=== PATIENT | male | born 1960 | race African-American/Black ===

== ENCOUNTER 2017-12-27 15:49 | Inpatient (IN) | payer OTHER ==
[~2017-12-27] VITALS: Ht 175.3 cm; Wt 60.4 kg
[2017-12-27 17:25] LABS: BASOPHIL % 0.2 % (0-2)
[2017-12-27 17:29] LABS: RED CELL DISTRIBUTION WIDTH 17.6 % (11.5-14.5)
[2017-12-27 17:30] LABS: PLATELET COUNT 46 x10^3mcL (130-400)
[2017-12-27 17:44] LABS: ALKALINE PHOSPHATASE 98 U/L (46-116); ALT/SGPT 36 U/L (16-63); AST/SGOT 87 U/L (15-37); BILIRUBIN TOTAL 3.8 mg/dL (0.20-1.00); CALCIUM 10.1 mg/dL (8.5-10.1); CARBON DIOXIDE 23.1 mmol/L (21-32); CHLORIDE SERUM 96 mmol/L (98-107); CREATININE SERUM 0.8 mg/dL (0.7-1.3); GFR1 > 60 mL/min; GLUCOSE SERUM 86 mg/dL (74-106); LIPASE 445 IU/L (73-393); SODIUM SERUM 131 mmol/L (136-145)
[2017-12-27 17:48] LABS: ALBUMIN 2.6 g/dL (3.4-5.0); POTASSIUM SERUM 2.8 mmol/L (3.5-5.1); TOTAL PROTEIN, SERUM 8.8 g/dL (6.4-8.2)
[2017-12-27 19:46] LABS: microscopic required? NO
[2017-12-27 19:59] LABS: UA SPECIFIC GRAVITY <=1.005 (1.005-1.035); urine erythrocyte NEGATIVE (NEGATIVE)
[2017-12-27 20:07] LABS: AMPHETAMINE QUAL UR NONE DETECTED (See below)
[2017-12-27 20:32] VITALS: BP 133/94
[2017-12-27 21:08] LABS: RED BLOOD CELLS 3.36 M/mm3 (4.52-5.90)
[2017-12-27 21:10] LABS: CHOLESTEROL/HDL RATIO 4.3; MAGNESIUM 1.4 mg/dL (1.8-2.4); PHOSPHOROUS 2.2 mg/dL (2.5-4.9)
[2017-12-27 21:17] LABS: TOTAL IRON BINDING CAPACITY 365 ug/dL (250-450)
[2017-12-27 21:19] LABS: IRON 31 ug/dL (65-170)
[2017-12-27 21:33] LABS: FREE T4 1.69 ng/dL (0.76-1.46); FREE THYROXINE INDEX 2.4 ug/dL (1.4-4.5); T4(THYROXINE) 8.2 ug/dL (4.7-13.3)
[2017-12-27 21:39] LABS: T3 TOTAL 0.91 ng/mL
[2017-12-28 01:16] VITALS: BP 156/110
[2017-12-28 05:22] VITALS: BP 115/79
[2017-12-28 06:24] LABS: BASOPHIL % 0.2 % (0-2)
[2017-12-28 06:26] LABS: CALCIUM 9.4 mg/dL (8.5-10.1); CARBON DIOXIDE 20.1 mmol/L (21-32); CHLORIDE SERUM 105 mmol/L (98-107); CREATININE SERUM 0.8 mg/dL (0.7-1.3); GFR1 > 60 mL/min; GLUCOSE SERUM 65 mg/dL (74-106); POTASSIUM SERUM 3.5 mmol/L (3.5-5.1); SODIUM SERUM 140 mmol/L (136-145)
[2017-12-28 06:27] LABS: MAGNESIUM 1.9 mg/dL (1.8-2.4); PHOSPHOROUS 2.2 mg/dL (2.5-4.9)
[2017-12-28 06:32] LABS: RED CELL DISTRIBUTION WIDTH 18.1 % (11.5-14.5)
[2017-12-28 06:33] LABS: PLATELET COUNT 49 x10^3mcL (130-400)
[2017-12-28 07:58] LABS: LIPASE 3504 IU/L (73-393)
[2017-12-28 08:00] LABS: ALBUMIN 2.2 g/dL (3.4-5.0); BILIRUBIN DIRECT 3.56 mg/dL (0.0-0.2); TOTAL PROTEIN, SERUM 8.2 g/dL (6.4-8.2)
[2017-12-28 08:37] VITALS: BP 125/83
[2017-12-28 13:06] VITALS: BP 130/87
[2017-12-28 16:40] VITALS: BP 126/84
[2017-12-28 19:49] VITALS: BP 141/98
[2017-12-29 05:32] VITALS: BP 137/61
[2017-12-29 06:59] LABS: BASOPHIL % 0.3 % (0-2)
[2017-12-29 07:31] LABS: CALCIUM 8.9 mg/dL (8.5-10.1); CARBON DIOXIDE 22.7 mmol/L (21-32); CHLORIDE SERUM 103 mmol/L (98-107); CREATININE SERUM 0.8 mg/dL (0.7-1.3); GFR1 > 60 mL/min; GLUCOSE SERUM 76 mg/dL (74-106); PHOSPHOROUS 1.5 mg/dL (2.5-4.9); POTASSIUM SERUM 4.2 mmol/L (3.5-5.1); SODIUM SERUM 137 mmol/L (136-145)
[2017-12-29 07:50] LABS: PLATELET COUNT 48 x10^3mcL (130-400); RED CELL DISTRIBUTION WIDTH 17.6 % (11.5-14.5)
[2017-12-29 13:07] VITALS: BP 135/93
[2017-12-29 17:10] VITALS: BP 137/84
[2017-12-29 20:53] VITALS: BP 123/88
[2017-12-30 05:18] VITALS: BP 137/98
[2017-12-30 07:41] LABS: ALKALINE PHOSPHATASE 88 U/L (46-116); ALT/SGPT 27 U/L (16-63); AST/SGOT 85 U/L (15-37); BILIRUBIN DIRECT 2.61 mg/dL (0.0-0.2); BILIRUBIN TOTAL 2.95 mg/dL (0.20-1.00); CALCIUM 8.8 mg/dL (8.5-10.1); CARBON DIOXIDE 23.6 mmol/L (21-32); CHLORIDE SERUM 102 mmol/L (98-107); CREATININE SERUM 0.7 mg/dL (0.7-1.3); GFR1 > 60 mL/min; GLUCOSE SERUM 102 mg/dL (74-106); POTASSIUM SERUM 3.5 mmol/L (3.5-5.1); SODIUM SERUM 135 mmol/L (136-145); TOTAL PROTEIN, SERUM 7.1 g/dL (6.4-8.2)
[2017-12-30 07:42] LABS: ALBUMIN 1.8 g/dL (3.4-5.0)
[2017-12-30 07:49] LABS: BASOPHIL % 0.2 % (0-2); PLATELET COUNT 51 x10^3mcL (130-400); RED CELL DISTRIBUTION WIDTH 17.3 % (11.5-14.5)
[2017-12-30 08:50] VITALS: BP 129/92
[2017-12-30 13:29] VITALS: BP 133/55; BP 145/98
[2017-12-30 17:08] VITALS: BP 142/97
[2017-12-30 20:26] VITALS: BP 133/95
[2017-12-31 05:47] VITALS: BP 154/105
[2017-12-31 07:04] LABS: CALCIUM 9.1 mg/dL (8.5-10.1); CARBON DIOXIDE 23.8 mmol/L (21-32); CHLORIDE SERUM 104 mmol/L (98-107); CREATININE SERUM 0.7 mg/dL (0.7-1.3); GFR1 > 60 mL/min; GLUCOSE SERUM 76 mg/dL (74-106); POTASSIUM SERUM 3.4 mmol/L (3.5-5.1); SODIUM SERUM 137 mmol/L (136-145)
[2017-12-31 07:28] VITALS: BP 171/114
[2017-12-31 08:21] LABS: BASOPHIL % 0 % (0-2); PLATELET COUNT 60 x10^3mcL (130-400)
[2017-12-31 09:46] VITALS: BP 137/97
[2017-12-31 12:52] VITALS: BP 145/99
[2017-12-31 16:06] VITALS: BP 150/101
[2017-12-31 18:31] VITALS: Ht 175.3 cm; Wt 60.4 kg
[2017-12-31 20:16] VITALS: BP 137/97
[2018-01-01 05:55] VITALS: BP 143/95
[2018-01-01 08:21] VITALS: BP 134/97
[2018-01-01 08:51] LABS: BASOPHIL % 0.3 % (0-2)
[2018-01-01 09:04] LABS: PLATELET COUNT 73 x10^3mcL (130-400); RED CELL DISTRIBUTION WIDTH 18.1 % (11.5-14.5)
[2018-01-01 09:13] LABS: CALCIUM 9.7 mg/dL (8.5-10.1); CARBON DIOXIDE 27.5 mmol/L (21-32); CHLORIDE SERUM 101 mmol/L (98-107); CREATININE SERUM 0.8 mg/dL (0.7-1.3); GFR1 > 60 mL/min; GLUCOSE SERUM 124 mg/dL (74-106); POTASSIUM SERUM 4.2 mmol/L (3.5-5.1); SODIUM SERUM 136 mmol/L (136-145)
[2018-01-01 12:48] VITALS: BP 121/92
[2018-01-01 16:58] VITALS: BP 119/85
[2018-01-01 20:58] VITALS: BP 109/79
[2018-01-02 05:34] VITALS: BP 149/99
[2018-01-02 08:41] VITALS: BP 123/87
[2018-01-02 12:14] VITALS: BP 108/82
[2018-01-02 14:51] VITALS: BP 108/82
[2018-01-02] MEDS ORDERED: FER300 PO (14:52)
[2018-01-02] MEDS ORDERED: AUGMENTIN 875-1 EACH PO (14:52)
[2018-01-02] MEDS ORDERED: ATORVASTATIN CA40 M1 PO (14:52)
[2018-01-02] MEDS ORDERED: TOP50 PO (14:52)
[2018-01-02] MEDS ORDERED: ECO81 PO (14:53)
[2018-01-02] MEDS ORDERED: FOL1 PO (14:53)
[2018-01-02] MEDS ORDERED: THI100 PO (14:53)
== END 2018-01-02 16:07 | disposition home health service (06) | DRG 282 ==
LOC: ED 15:49 → MU 19:19 → DU 19:19 → MU 20:15 → DU 20:18
PROVIDERS: Emergency Medicine; Family Medicine; Internal Medicine
DX: K85.20 Alcohol induced acute pancreatitis without necrosis or infection (principal); E43 Unspecified severe protein-calorie malnutrition; G93.41 Metabolic encephalopathy; D69.59 Other secondary thrombocytopenia; E83.42 Hypomagnesemia; E83.39 Other disorders of phosphorus metabolism; K70.9 Alcoholic liver disease, unspecified; I48.2 Chronic atrial fibrillation; G40.909 Epilepsy, unspecified, not intractable, without status epilepticus; I10 Essential (primary) hypertension; E87.6 Hypokalemia; F12.10 Cannabis abuse, uncomplicated; H66.93 Otitis media, unspecified, bilateral; E87.1 Hypo-osmolality and hyponatremia; E80.6 Other disorders of bilirubin metabolism; Y90.0 Blood alcohol level of less than 20 mg/100 ml; E05.90 Thyrotoxicosis, unspecified without thyrotoxic crisis or storm; F10.129 Alcohol abuse with intoxication, unspecified; D63.8 Anemia in other chronic diseases classified elsewhere; H72.93 Unspecified perforation of tympanic membrane, bilateral; I25.2 Old myocardial infarction; Z80.3 Family history of malignant neoplasm of breast; Z68.1 Body mass index [BMI] 19.9 or less, adult; Z86.73 Personal history of transient ischemic attack (TIA), and cerebral infarction without residual deficits; Z71.41 Alcohol abuse counseling and surveillance of alcoholic
CPT/HCPCS: 36600; 83880; 84439; 97110-GP; 97116-GP; 97530-GP; C9113; G0480; J1885; J2060; J2270; J2405; J3475; J3480; J3490; J7030; Q0092